=== PATIENT | male | born 1940 | race Caucasian/White ===

== ENCOUNTER 2016-10-11 11:47 | Observation (INO) | payer OTHER ==
[~2016-10-11] VITALS: Ht 167.6 cm; Wt 82.4 kg
[~2016-10-11 11:47] MED LIST changes: -CHOL100010 PO; -CYM/30 PO; -DOCU-94 PO; -FINA5TAB PO; -FLM4 PO; -FLUO10CA48 PO; -FLUO40CA8 PO; -GLC/500 PO; -HYDR-5688 PO; -NITR1CAP33 PO; -PROP10TA7 PO
[2016-10-11] MEDS ORDERED: FLUO40CA8 PO (11:54)
[2016-10-11] MEDS ORDERED: SODIUM CHLORIDE 0.9% 500ML 500 ML IV STA (12:13)
[2016-10-11 12:23] LABS: BASO % 0.4 %; BASO ABS # 0.04 K/uL (0-0.2); COMPLETE YES; EOS % 3.5 %; HEMATOCRIT 45.9 % (42-52); IG% 0.4 %; LYMPH % 36.3 %; LYMPH ABS # 3.51 K/uL (1.2-3.4); MEAN CELL VOLUME 90.4 fL (80-100); MEAN CORPUSCULAR HEMOGLOBIN 30.9 pg (25-34); MEAN CORPUSCULAR HGB CONC 34.2 g/dl (32-36); MEAN PLATELET VOLUME 10.8 fL (7.4-10.4); MONO % 6.9 %; NEUT % 52.5 %; PLATELET COUNT 282 K/uL (130-400); RED BLOOD COUNT 5.08 M/uL (4.7-6.1); WHITE BLOOD COUNT 9.67 K/uL (4.8-10.8)
[2016-10-11 12:31] LABS: PARTIAL THROMBOPLASTIN RATIO 0.9; PROTHROMBIN TIME (PATIENT) 10.3 SECONDS (9.0-12.0)
[2016-10-11 12:55] LABS: ALKALINE PHOSPHATASE 81 U/L (45-117); ALT/SGPT 45 U/L (12-78); AST/SGOT 17 U/L (15-37); BLOOD UREA NITROGEN 24 mg/dl (7-18); CALCIUM 9.2 mg/dl (8.5-10.1); CARBON DIOXIDE 23 mmol/L (21-32); CHLORIDE 105 mmol/L (98-107); GLUCOSE 119 mg/dl (70-99); POTASSIUM 3.8 mmol/L (3.5-5.1); SODIUM 139 mmol/L (136-145)
[2016-10-11 13:09] LABS: MAGNESIUM 2.1 mg/dl (1.8-2.4)
--- NOTE | 2016-10-11 13:26 | DIAGNOSTIC IMAGING REPORT ---
CHEST ONE VIEW PORTABLE CLINICAL HISTORY: weak eval for pnea COMPARISON STUDY: No previous studies for comparison. FINDINGS: The bones soft tissues and hemidiaphragms are normal. The cardiomediastinal silhouette is normal. The lungs are clear. The pulmonary vasculature is normal. IMPRESSION: Negative chest. Electronically signed by: Gold Darling M.D. 10/11/2016 1:25 PM Dictated Date/Time: 10/11/2016 1:12 PM
[2016-10-11] MEDS ORDERED: POLYETHYLENE (MIRALAX) 17 GM PACK PO PRN (14:00)
[2016-10-11] MEDS ORDERED: ACETAMINOPHEN 325 MG TAB PO PRN (14:00)
[2016-10-11] MEDS ORDERED: ALUMINUM/MAGNESIUM/SIMETH (MAALOX MAX) 30 ML UDC PO PRN (14:00)
[2016-10-11] MEDS ORDERED: MAGNESIUM HYDROXIDE SUSP 30 ML UDC PO PRN (14:00)
[2016-10-11] MEDS ORDERED: ONDANSETRON INJ 2 MG/ML 2 ML VIAL IV PRN (14:00)
[2016-10-11] MEDS ORDERED: IV FLUIDS COMPLETED PRN (14:30)
[2016-10-11 16:01] VITALS: BP 126/77; PULSE 66; TEMP 36.5; O2SAT 95; Ht 167.6 cm; Wt 82.4 kg
--- NOTE | 2016-10-11 17:21 | EMERGENCY ROOM VISIT NOTE ---
History Report prepared by Manan: Enmanuel Carter Under the Supervision of: Dr. Gaston Hernández M.D. First contact with patient: 12:05 Chief Complaint: SYNCOPE Stated Complaint: syncope Nursing Triage Summary: Pt presents via litter from out patient lab. pt had blood work taken at out pt lab and reports he then started to feel queasy. adalid solorzano was called. rn from [facility] team reports that pt then suffered a syncopal episode and was shaking. lasted aprox 10 seconds. upon arrival to ed room a10. pt alert and oriented x 4. diaphoretic. pt pale in color. pt reports "my whole body aches, i have had this all winter for a long time. bsg from [facility] team 118. pt reports he ate breakfast today. History of Present Illness The patient is a 75 year old male who presents to the Emergency Room with complaints of a resolved episode of syncope that occurred just prior to arrival. The patient was at the outpatient lab having routine blood work. The blood was finished being drawn when he started to feel "queasy." He then had a short episode where he lost consciousness. The patient was sitting in his chair and did not fall or hit his head. The patient was also shaking for about 10 seconds after losing consciousness. He does not have a history of seizures. He had breakfast this morning. He was not experiencing headache, chest pain, or shortness of breath prior to the syncope. The patient is currently feeling globally achy and restless. He has not had any recent vomiting, diarrhea, black or bloody stools, or urinary symptoms. The patient denies any recent tick bites and recently tested negative for Lyme disease. The patient has been experiencing intermittent body aches for years. He states currently he feels very lightheaded and weak. Source of History: patient Onset: just [employer] Position: other (global) Quality: other (syncope) Timing: resolved Associated Symptoms: No SOB, No chest pain, No diarrhea, No headache, No hematochezia, No melena, No urinary symptoms, No vomiting Review of Systems See HPI for pertinent positives & negatives. A total of 10 systems reviewed and were otherwise negative. Past Medical & Surgical Medical Problems: (1) HTN (hypertension) (2) Kidney stone (3) Syncope Family History No pertinent family history Social History Smoking Status: Never Smoker Marital Status: Housing Status: lives with family Current/Historical Medications Scheduled Amiloride/Hctz (Amiloride/Hydrochlorothia 5-50 mg), 1 TAB PO QAM Atenolol (Atenolol), 12.5 MG PO Q2D Citalopram (Citalopram Hydrobromide), 20 MG PO QAM Fluoxetine (Prozac), 40 MG PO DAILY Lisinopril (Zestril), 10 MG PO QAM Multiple Vitamin (Multivitamin), 1 TAB PO AM Potassium Citrate (Potassium Citrate), 10 MEQ PO QAM Allergies Coded Allergies: No Known Allergies (Unverified , 10/11/16) Physical Exam Vital Signs Date Time Temp Pulse Resp B/P Pulse Ox O2 Delivery O2 Flow Rate FiO2 10/11/16 13:45 61 18 129/75 96 Room Air 10/11/16 13:06 54 18 121/67 94 Room Air 10/11/16 12:17 57 20 116/66 96 Room Air 10/11/16 12:12 59 104/70 60 124/107 113/72 10/11/16 12:08 56 10/11/16 12:07 58 18 110/71 96 Room Air 10/11/16 11:45 94 Room Air 10/11/16 11:45 36.7 58 18 134/76 95 Room Air Physical Exam Constitutional: Vital signs reviewed. Eyes: Pupils are equal round reactive to light. Conjunctiva are noninjected. ENT: Pharynx is clear without erythema or exudate. Mucous membranes are dry. Neck supple without meningeal signs. Respiratory: Clear to auscultation bilaterally. Breath sounds are equal bilaterally. Cardiovascular: Regular rate and rhythm. No rubs or gallops. GI: Soft, nondistended and nontender. Bowel sounds are present. Musculoskeletal: No peripheral edema. No lower extremity tenderness. Integumentary: No cyanosis. Neurological: The patient is awake and alert. No focal deficits. Psychiatric: Normal affect. Medical Decision & Procedures ER Provider Diagnostic Interpretation: X-ray results as stated below per interpretation by me and the radiologist: CHEST ONE VIEW PORTABLE CLINICAL HISTORY: weak eval for pnea COMPARISON STUDY: No previous studies for comparison. FINDINGS: The bones soft tissues and hemidiaphragms are normal. The cardiomediastinal silhouette is normal. The lungs are clear. The pulmonary vasculature is normal. IMPRESSION: Negative chest. Electronically signed by: Gold Darling M.D. 10/11/2016 1:25 PM Dictated Date/Time: 10/11/2016 1:12 PM Laboratory Results 10/11/16 12:00 Red Blood Count 5.08, Mean Corpuscular Volume 90.4, Mean Corpuscular Hemoglobin 30.9, Mean Corpuscular Hemoglobin Concent 34.2, Mean Platelet Volume 10.8, Neutrophils (%) (Auto) 52.5, Lymphocytes (%) (Auto) 36.3, Monocytes (%) (Auto) 6.9, Eosinophils (%) (Auto) 3.5, Basophils (%) (Auto) 0.4, Neutrophils # (Auto) 5.07, Lymphocytes # (Auto) 3.51, Monocytes # (Auto) 0.67, Eosinophils # (Auto) 0.34, Basophils # (Auto) 0.04 10/11/16 12:00 Test 10/11/16 12:00 White Blood Count 9.67 K/uL (4.8-10.8) Red Blood Count 5.08 M/uL (4.7-6.1) Hemoglobin 15.7 g/dL (14.0-18.0) Hematocrit 45.9 % (42-52) Mean Corpuscular Volume 90.4 fL (80-100) Mean Corpuscular Hemoglobin 30.9 pg (25-34) Mean Corpuscular Hemoglobin Concent 34.2 g/dl (32-36) Platelet Count 282 K/uL (130-400) Mean Platelet Volume 10.8 fL (7.4-10.4) Neutrophils (%) (Auto) 52.5 % Lymphocytes (%) (Auto) 36.3 % Monocytes (%) (Auto) 6.9 % Eosinophils (%) (Auto) 3.5 % Basophils (%) (Auto) 0.4 % Neutrophils # (Auto) 5.07 K/uL (1.4-6.5) Lymphocytes # (Auto) 3.51 K/uL (1.2-3.4) Monocytes # (Auto) 0.67 K/uL (0.11-0.59) Eosinophils # (Auto) 0.34 K/uL (0-0.5) Basophils # (Auto) 0.04 K/uL (0-0.2) RDW Standard Deviation 43.3 fL (36.4-46.3) RDW Coefficient of Variation 13.2 % (11.5-14.5) Immature Granulocyte % (Auto) 0.4 % Immature Granulocyte # (Auto) 0.04 K/uL (0.00-0.02) Prothrombin Time 10.3 SECONDS (9.0-12.0) Prothromb Time International Ratio 1.0 (0.9-1.1) Activated Partial Thromboplast Time 23.2 SECONDS (21.0-31.0) Partial Thromboplastin Ratio 0.9 Anion Gap 11.0 mmol/L (3-11) Est Creatinine Clear Calc Drug Dose 55.3 ml/min Estimated GFR () 69.1 Estimated GFR (Non- 59.6 BUN/Creatinine Ratio 20.0 (10-20) Calcium Level 9.2 mg/dl (8.5-10.1) Magnesium Level 2.1 mg/dl (1.8-2.4) Total Bilirubin 0.4 mg/dl (0.2-1) Direct Bilirubin 0.1 mg/dl (0-0.2) Aspartate Amino Transf (AST/SGOT) 17 U/L (15-37) Alanine Aminotransferase (ALT/SGPT) 45 U/L (12-78) Alkaline Phosphatase 81 U/L (45-117) Troponin I < 0.015 ng/ml (0-0.045) Total Protein 7.7 gm/dl (6.4-8.2) Albumin 3.9 gm/dl (3.4-5.0) Thyroid Stimulating Hormone (TSH) 3.530 uIu/ml (0.300-4.500) Laboratory results as reviewed by me. Medications Administered Medications (Trade) Dose Ordered Sig/Ashley Route Start Time Stop Time Status Last Admin Dose Admin Sodium Chloride (Nss 500ml) 500 ml @ 999 mls/hr Q31M STAT IV 10/11/16 12:13 10/11/16 12:43 DC 10/11/16 12:18 999 MLS/HR ECG Indication: syncope Rate (beats per minute): 54 Rhythm: sinus bradycardia Findings: no acute ischemic change, no ectopy ED Course 1208: The patient was evaluated in room A10. A complete history and physical exam was performed. 1213: NSS 500 ml @ 999 mls/hr. 1310: Reassessed the patient. He is feeling better. 1333: Discussed the case with Dr. Aviles, [facility]. The patient will be evaluated. Medical Decision This is a 75-year-old male who presents with a syncopal episode. Differential diagnosis includes metabolic derangement, hypoglycemia, vasovagal syncope, dehydration, orthostatic hypotension, cardiac. I did perform a limited focused review of portions of the patient's old chart on the electronic medical record. The patient has had no recent pertinent visits to this hospital. I was asked to see this patient by the nurse as he was still symptomatic after a syncopal episode. I did evaluate the patient as noted above. He is complaining of generalized weakness and feeling like his chronic pass out again. He was unable to tolerate orthostatic vital signs. He IV access was established. The patient was placed on a continuous cardiac surgeon. I did treat him with normal saline IV. I did order and personally review the patient' s 12-lead EKG and chest x-ray as described above. I did order and review the patient's blood work as noted in the electronic medical record. I did discuss the test results with the patient. On reassessment he is feeling better. I did recommend hospitalization for further workup of his symptoms. I did discuss case with the hospitalist and family service caseworker. Consults Time Called: 1330 Consulting Physician: Dr. Aviles, [facility] Returned Call: [phone] The patient will be evaluated. Impression Primary Impression: Syncope Scribe Attestation The scribe's documentation has been prepared under my direct and personally reviewed by me in its entirety. I confirm that the note above accurately reflects all work, treatment, procedures, and medical decision making performed by me. Departure Information Dispostion Being Evaluated By Hospitalist Referrals Michael Atwood M.D. (PCP) Patient Instructions [facility] Problem Qualifiers Primary Impression: Syncope Syncope type: unspecified Qualified Codes: R55 - Syncope and collapse
--- NOTE | 2016-10-11 18:17 | History and Physical ---
History & Physical Date & Time of Service: October 11, 2016 at 18:12 Chief Complaint: Syncope Primary Care Physician: Michael Atwood M.D. Past Medical/Surgical History Medical Problems: (1) HTN (hypertension) Status: Chronic (2) Kidney stone Status: Chronic Family History No pertinent family history Social History Smoking Status: Never Smoker Marital Status: Multi-Drug Resistant Organisms History of MDRO: No Allergies Coded Allergies: No Known Allergies (Unverified , 10/11/16) Home Medications Scheduled Amiloride/Hctz (Amiloride/Hydrochlorothia 5-50 mg), 1 TAB PO QAM Atenolol (Atenolol), 12.5 MG PO Q2D Citalopram (Citalopram Hydrobromide), 20 MG PO QAM Fluoxetine (Prozac), 40 MG PO DAILY Lisinopril (Zestril), 10 MG PO QAM Multiple Vitamin (Multivitamin), 1 TAB PO AM Potassium Citrate (Potassium Citrate), 10 MEQ PO QAM Physical Exam Vital Signs Date Time Temp Pulse Resp B/P Pulse Ox O2 Delivery O2 Flow Rate FiO2 10/11/16 16:01 36.5 66 16 126/77 95 Room Air 10/11/16 14:38 60 18 123/78 95 Room Air 10/11/16 14:12 59 18 127/76 95 Room Air 10/11/16 14:09 59 10/11/16 13:45 61 18 129/75 96 Room Air 10/11/16 13:06 54 18 121/67 94 Room Air 10/11/16 12:17 57 20 116/66 96 Room Air 10/11/16 12:12 59 104/70 60 124/107 113/72 10/11/16 12:08 56 10/11/16 12:07 58 18 110/71 96 Room Air 10/11/16 11:45 94 Room Air 10/11/16 11:45 36.7 58 18 134/76 95 Room Air Diagnostics Laboratory Results Results Past 24 Hours Test 10/11/16 12:00 Range/Units White Blood Count 9.67 4.8-10.8 K/uL Red Blood Count 5.08 4.7-6.1 M/uL Hemoglobin 15.7 14.0-18.0 g/dL Hematocrit 45.9 42-52 % Mean Corpuscular Volume 90.4 80-100 fL Mean Corpuscular Hemoglobin 30.9 25-34 pg Mean Corpuscular Hemoglobin Concent 34.2 32-36 g/dl Platelet Count 282 130-400 K/uL Mean Platelet Volume 10.8 7.4-10.4 fL Neutrophils (%) (Auto) 52.5 % Lymphocytes (%) (Auto) 36.3 % Monocytes (%) (Auto) 6.9 % Eosinophils (%) (Auto) 3.5 % Basophils (%) (Auto) 0.4 % Neutrophils # (Auto) 5.07 1.4-6.5 K/uL Lymphocytes # (Auto) 3.51 1.2-3.4 K/uL Monocytes # (Auto) 0.67 0.11-0.59 K/uL Eosinophils # (Auto) 0.34 0-0.5 K/uL Basophils # (Auto) 0.04 0-0.2 K/uL RDW Standard Deviation 43.3 36.4-46.3 fL RDW Coefficient of Variation 13.2 11.5-14.5 % Immature Granulocyte % (Auto) 0.4 % Immature Granulocyte # (Auto) 0.04 0.00-0.02 K/uL Prothrombin Time 10.3 9.0-12.0 SECONDS Prothromb Time International Ratio 1.0 0.9-1.1 Activated Partial Thromboplast Time 23.2 21.0-31.0 SECONDS Partial Thromboplastin Ratio 0.9 Sodium Level 139 136-145 mmol/L Potassium Level 3.8 3.5-5.1 mmol/L Chloride Level 105 98-107 mmol/L Carbon Dioxide Level 23 21-32 mmol/L Anion Gap 11.0 3-11 mmol/L Blood Urea Nitrogen 24 7-18 mg/dl Creatinine 1.20 0.60-1.40 mg/dl Est Creatinine Clear Calc Drug Dose 55.3 ml/min Estimated GFR () 69.1 Estimated GFR (Non- 59.6 BUN/Creatinine Ratio 20.0 10-20 Random Glucose 119 70-99 mg/dl Calcium Level 9.2 8.5-10.1 mg/dl Magnesium Level 2.1 1.8-2.4 mg/dl Total Bilirubin 0.4 0.2-1 mg/dl Direct Bilirubin 0.1 0-0.2 mg/dl Aspartate Amino Transf (AST/SGOT) 17 15-37 U/L Alanine Aminotransferase (ALT/SGPT) 45 12-78 U/L Alkaline Phosphatase 81 45-117 U/L Troponin I < 0.015 0-0.045 ng/ml Total Protein 7.7 6.4-8.2 gm/dl Albumin 3.9 3.4-5.0 gm/dl Thyroid Stimulating Hormone (TSH) 3.530 0.300-4.500 uIu/ml Impression Assessment and Plan obs #[id number] Advanced Directives Existing Living Will: No Existing Power of Stock Mixer: No VTE Prophylaxis VTE Risk Assessment Done? Y/N: Yes Risk Level: Moderate
--- NOTE | 2016-10-11 18:56 | HISTORY & PHYSICAL EXAMINATION ---
DATE OF ADMISSION: 10/11/2016 CHIEF COMPLAINT: Syncope. HISTORY OF PRESENT ILLNESS: The patient is a very pleasant 75-year-old male, who was here to get blood work. He notes he felt "queasy" before the needle stick and then afterwards he started to feel like he was going to go out, got pale and diaphoretic and then had a syncopal event. He was code purple in the lab and then brought to the ER for further evaluation because of his age and cardiac risks. Although he felt fine now, we were asked to see him for further evaluation in regards to the syncope. He denies any chest pain or shortness of breath. He notes that he kind of felt it coming on and now he feels fine. REVIEW OF SYSTEMS: Otherwise entirely negative except for as above. PAST MEDICAL HISTORY: Hypertension, BPH and nephrolithiasis. HOME MEDICATIONS: Amiloride/hydrochlorothiazide 5/50 daily, atenolol 12.5 listed as every other day, Celexa 20 mg daily, Prozac 40 mg daily, lisinopril 10 mg daily, multivitamin daily and potassium chloride 10 mEq daily. PAST SURGICAL HISTORY: Includes prostatectomy and lithotripsy. FAMILY HISTORY: There is no known family history of anything of significance. SOCIAL HISTORY: He is a former smoker. He does not smoke currently. He is . ALLERGIES: No known drug allergies. PHYSICAL EXAMINATION: VITAL SIGNS: His initial vitals showed a temp of 36.7, pulse 58, respiratory rate 18, blood pressure 134/76 and 95% on room air. GENERAL: He is awake, alert, oriented x3, pleasant, in no acute distress. HEENT: Normocephalic, atraumatic. Mucous membranes are moist. CARDIOVASCULAR: Regular without rubs, murmurs or gallops. LUNGS: Clear to auscultation bilaterally. No rales, rhonchi or wheezes, with good effort. ABDOMEN: Soft, nondistended, nontender, no masses or organomegaly. EXTREMITIES: Without cyanosis, clubbing or edema. No calf tenderness. SKIN: Shows no rashes, no pallor or icterus. NEUROLOGIC: Shows cranial nerves II-XII to be grossly intact. Gross motor and sensory are intact. MUSCULOSKELETAL: Yields no gross lesions. SKIN: Shows no rashes. No pallor or icterus. NEUROLOGIC: Shows cranial nerves II-XII to be grossly intact. Gross motor and sensory are intact. MENTAL STATUS: Shows good recent and remote recall. Normal mood and affect. Good judgment and insight. LABORATORIES AND DIAGNOSTICS: CBC shows a white count of 9.67 with 52.5% neutrophils, hemoglobin 15.7, platelets 282. Complete metabolic panel with sodium 139, potassium 3.8, chloride 105, CO2 23, BUN 24, creatinine 1.2, calcium 9.2, glucose 119, mag 2.1, total bili 0.4 with a direct of 0.1, AST 17, ALT 45, alkaline phosphatase 81, troponin of less than 0.015. Total protein 7.7. TSH 3.53, albumin 3.9. PT of 10.3, PTT of 23.2. Chest x-ray; shows no acute disease. EKG; slight sinus bradycardia, a little bit difficult to interpret tracing with a slight wandering baseline, another tracing on the same day is more clear, sinus bradycardia without ischemic changes. ASSESSMENT AND PLAN: 1. Syncope; his history fits extremely well with a vasovagal event. He was feeling nauseated, then he got pale and diaphoretic, he went out, then he woke up feeling like himself with no notable sequelae. Given this happened right around the time of a blood draw, this makes it even more likely. However, given his age, hypertension and risk, we certainly need to evaluate for arrhythmia as well as other pathology. We will put him on telemetry for continuous cardiac monitoring. Check orthostatics b.i.d. to ensure he is not being over treated with any antihypertensives and check an echocardiogram; assuming these are all negative, then certainly both by the fact this looks very vagal and by ruling out other pathology would be very safe to let him go home. 2. Hypertension. Continue his home meds, check the orthostatic as above noted. 3. Deep venous thrombosis prophylaxis, Lovenox. 4. Polypharmacy; he is listed as being on both Celexa and Prozac; we will try to clarify which he is actually on.
[2016-10-11 19:23] LABS: URINE APPEARANCE CLEAR (CLEAR); URINE BILIRUBIN NEG (NEG); URINE COLOR YELLOW; URINE NITRITE NEG (NEG); URINE PH 7.5 (4.5-7.5); URINE SPECIFIC GRAVITY 1.012 (1.000-1.030); UROBILINOGEN NEG (NEG)
[2016-10-11 19:39] VITALS: BP 123/72; PULSE 76; TEMP 36.6; O2SAT 100
[2016-10-11 19:44] LABS: MANUAL MICROSCOPIC REQUIRED? NO; REVIEW REQ? NO
[2016-10-11 19:56] VITALS: BP 142/78; PULSE 60; TEMP 36.8; O2SAT 93
[2016-10-11 20:00] VITALS: O2SAT 93
[2016-10-11] MEDS ORDERED: ENOXAPARIN 40 MG/0.4 ML SYR SC SCH (21:00)
[2016-10-12] VITALS: BP 143/75; PULSE 60; TEMP 36.5; O2SAT 94
[2016-10-12 04:00] VITALS: BP 137/68; PULSE 58; TEMP 36.7; O2SAT 95
[2016-10-12 08:14] VITALS: BP 150/82; PULSE 74; TEMP 36.9; O2SAT 97
[2016-10-12] MEDS ORDERED: POTASSIUM CITRATE 10 MEQ TAB PO SCH (09:00)
[2016-10-12] MEDS ORDERED: MULTIVITAMIN TAB PO SCH (09:00)
[2016-10-12] MEDS ORDERED: AMILORIDE/HCTZ 5-50 MG TAB PO SCH (09:00)
[2016-10-12] MEDS ORDERED: CITALOPRAM 20 MG TAB PO SCH (09:00)
[2016-10-12] MEDS ORDERED: FLUOXETINE HCL 20 MG CAP PO SCH (09:00)
[2016-10-12] MEDS ORDERED: LISINOPRIL 10 MG TAB PO SCH (09:00)
[2016-10-12 10:17] VITALS: BP_SYST 139; BP_SYST 143; BP_SYST 149; BP_DIAS 72; BP_DIAS 74; PULSE 71; PULSE 75; PULSE 78; TEMP 36.8; O2SAT 95
--- NOTE | 2016-10-12 10:34 | Discharge Instructions ---
Discharge Instructions Date of Service October 12, 2016. Admission Reason for Admission: Syncope Discharge Discharge Diagnosis / Problem: Syncope - Vasovagal Discharge Goals Goal(s): Improve disease control Activity Recommendations Activity Limitations: resume your previous activity . Instructions / Follow-Up Instructions / Follow-Up Follow up with Family physician within one week Current Hospital Diet Patient's current hospital diet: Regular Diet Discharge Diet Recommended Diet: AHA Diet (Heart Healthy) Pending Studies Studies pending at discharge: no Medical Emergencies . Who to Call and When: Medical Emergencies: If at any time you feel your situation is an emergency, please call 911 immediately. . Non-Emergent Contact Non-Emergency issues call your: Primary Care Provider . . "Provider Documentation" section prepared by Judi Traore. . VTE Core Measure Inpt VTE Proph given/why not?: Enoxaparin (Lovenox)SQ
[2016-10-12 10:55] VITALS: BP 149/74; PULSE 75; TEMP 36.8; O2SAT 95
[2016-10-12 11:45] VITALS: BP 129/59; PULSE 84; TEMP 36.8; O2SAT 96
--- NOTE | 2016-10-12 12:36 | Discharge Summary ---
Discharge Summary Date of Service October 12, 2016. Discharge Summary Admission Date: October 11, 2016 at 13:59 Discharge Date: October 12, 2016 Discharge Disposition: Home Principal Diagnosis: Vasovagal Syncope Medication Reconciliation Continued Medications: Amiloride/Hctz (Amiloride/Hydrochlorothia 5-50 mg) 1 Ea Tab 1 TAB PO QAM Atenolol (Atenolol) 25 Mg Tab 12.5 MG PO Q2D Fluoxetine (Prozac) 40 Mg Cap 40 MG PO DAILY, CAP Lisinopril (Zestril) 10 Mg Tab 10 MG PO QAM, TAB Multiple Vitamin (Multivitamin) 1 Tab Tab 1 TAB PO AM, TAB Potassium Citrate (Potassium Citrate) 10 Meq Tab 10 MEQ PO QAM Discharge Exam Last Resulted CBC 10/11/16 12:00 Red Blood Count 5.08, Mean Corpuscular Volume 90.4, Mean Corpuscular Hemoglobin 30.9, Mean Corpuscular Hemoglobin Concent 34.2, Mean Platelet Volume 10.8, Neutrophils (%) (Auto) 52.5, Lymphocytes (%) (Auto) 36.3, Monocytes (%) (Auto) 6.9, Eosinophils (%) (Auto) 3.5, Basophils (%) (Auto) 0.4, Neutrophils # (Auto) 5.07, Lymphocytes # (Auto) 3.51, Monocytes # (Auto) 0.67, Eosinophils # (Auto) 0.34, Basophils # (Auto) 0.04 Last Resulted BMP 10/11/16 12:00 Last 24 Hours Test 10/11/16 19:05 10/11/16 19:52 10/12/16 02:04 10/12/16 07:56 Urine Color YELLOW Urine Appearance CLEAR Urine pH 7.5 Urine Specific [place] 1.012 Urine Protein NEG Urine Glucose (UA) NEG Urine Ketones NEG Urine Occult Blood NEG Urine Nitrite NEG Urine Bilirubin NEG Urine Urobilinogen NEG Urine Leukocyte Esterase NEG Troponin I < 0.015 ng/ml < 0.015 ng/ml < 0.015 ng/ml Review of Systems: Constitutional: No fever Respiratory: No shortness of breath Cardiovascular: No chest pain, No edema, No orthopnea, No palpitations Abdomen: No pain Physical Exam: General Appearance: no apparent distress Respiratory/Chest: lungs clear, no respiratory distress Cardiovascular: regular rate, rhythm Abdomen / GI: normal bowel sounds, non tender, soft Neurologic/Psychiatric: alert, oriented x 3 Skin: warm/dry Hospital Course 75 y/o M who was getting his blood test done, felt "queasy" before the needle stick and then afterwards he started to feel like he was going to go out, got pale and diaphoretic and then had a syncopal event. He was code purple in the lab and then brought to the ER for further evaluation because of his age and cardiac risks. He felt fine right after the event. Initial work up in ED was negative. Kept on PCU. Orthostatics and heart rhythm were normal. Advised to check blood pressure at home and take readings to PCP. f/u with pcp in one week Total Time Spent: Greater than 30 minutes (40) This includes examination of the patient, discharge planning, medication reconciliation, and communication with other providers. Discharge Instructions Please refer to the electronic Patient Visit Report (Discharge Instructions) for additional information. Additional Copies To Michael Atwood M.D.
--- NOTE | 2016-10-12 15:04 | ECHOCARDIOGRAM REPORT ---
*NOTICE TO RECEIVING CONSTITUTION PARTY AGENCY This information is strictly Confidential and protected under [place] law. [place] law prohibits you from making any further disclosure of this information unless further disclosure is expressly permitted by the written consent of the person to whom it pertains or is authorized by law. A general authorization for the release of medical or other information is not sufficient for this purpose. Hospital accepts no responsibility if the information is made available to any other person, INCLUDING THE PATIENT. Interpretation Summary * Name: MARC JEFFRIES Study Date: 10/12/2016 06:31 AM BP: 137/68 mmHg * Patient Location: [facility]– [place][note 2] HR: 58 * : 1940 (M/d/yyyy) Gender: Male Height: 66 in * Age: 75 yrs Ethnicity: CA Weight: 182 lb * Ordering Physician: Brijesh Aviles * Performed By: Leatha Lopez * * Reason For Study: SYNCOPE * BSA: 1.9 m2 * -- Conclusions -- * 1. Normal left ventricular size with low-normal systolic function. EF 50-55%. No regional wall motion abnormalities. Mild concentric left ventricular hypertrophy. Type 1 diastolic dysfunction. * 2. No significant valvular abnormalities. * 3. No prior study available for comparison. Procedure Details * A complete two-dimensional transthoracic echocardiogram was performed (2D, M-mode, Doppler and color flow Doppler). Left Ventricle * Normal left ventricular size with low-normal systolic function. EF 50-55%. No regional wall motion abnormalities. Mild concentric left ventricular hypertrophy. Type 1 diastolic dysfunction. * Ejection Fraction = 50-55%. Right Ventricle * The right ventricle is normal in size and function. * The right ventricular systolic function is normal as assessed by tricuspid annular plane systolic excursion (TAPSE) (normal >1.5 cm). Atria * The left atrial size is normal. * Right atrial size is normal. * There is no evidence of atrial septal defect, but resolution does not allow assessment for a patent foramen ovale. Mitral Valve * The mitral valve is grossly normal. * There is no mitral valve stenosis. * There is trace mitral regurgitation. Tricuspid Valve * The tricuspid valve is not well visualized, but is grossly normal. * There is no tricuspid stenosis. * Significant tricuspid regurgitation is absent. Aortic Valve * The aortic valve is normal in structure and function. * No hemodynamically significant valvular aortic stenosis. * Trace aortic regurgitation. Pulmonic Valve * The pulmonary valve is inadequately visualized, but the Doppler data is adequate for interpretation. * There is no pulmonic valvular stenosis. * There is no significant pulmonary regurgitation. Great Vessels * The aortic root is normal size. Pericardium/Pleural * There is no pericardial effusion. Great Vessels * Normal inferior vena cava size and collapsability with sniff indicates a normal right atrial pressure of 3 mmHg Left Ventricular Diastolic Function * Grade I diastolic dysfunction, (abnormal relaxation pattern). MMode 2D Measurements and Calculations IVSd 1.2 cm IVSs 1.8 cm LVIDd 4.3 cm LVIDs 3.1 cm LVPWd 1.2 cm LVPWs 1.7 cm IVS/LVPW 0.99 FS 27.3 % EDV(Teich) 83.8 ml ESV(Teich) 39.1 ml EF(Teich) 53.4 % EDV(cubed) 80.3 ml ESV(cubed) 30.9 ml EF(cubed) 61.5 % % IVS thick 52.3 % % LVPW thick 41.2 % LV mass(C)d 181.4 grams LV mass(C)dI 94.4 grams/m\S\2 LV mass(C)s 214.5 grams LV mass(C)sI 111.6 grams/m\S\2 CO(Teich) 2.6 l/min CI(Teich) 1.3 l/min/m\S\2 SV(Teich) 44.7 ml SI(Teich) 23.3 ml/m\S\2 CO(cubed) 2.9 l/min CI(cubed) 1.5 l/min/m\S\2 SV(cubed) 49.4 ml SI(cubed) 25.7 ml/m\S\2 Ao root diam 3.4 cm Ao root area 9.2 cm\S\2 ACS 1.4 cm LA dimension 3.4 cm asc Aorta Diam 3.3 cm LA/Ao 10 LVOT diam 2.1 cm LVOT area 3.4 cm\S\2 LVAd ap4 27.1 cm\S\2 LVLd ap4 7.2 cm EDV(MOD-sp4) 86.5 ml LVAs ap4 17.4 cm\S\2 LVLs ap4 6.0 cm ESV(MOD-sp4) 43.2 ml EF(MOD-sp4) 50.1 % LVAd ap2 24.2 cm\S\2 LVLd ap2 7.0 cm EDV(MOD-sp2) 69.3 ml EDV(sp2-el) 87.2 ml LVAs ap2 15.6 cm\S\2 LVLs ap2 6.0 cm ESV(MOD-sp2) 33.7 ml ESV(sp2-el) 33.6 ml EF(MOD-sp2) 51.4 % EF(sp2-el) 61.5 % CO(MOD-sp4) 2.5 l/min CI(MOD-sp4) 1.3 l/min/m\S\2 SV(MOD-sp4) 43.3 ml SI(MOD-sp4) 22.5 ml/m\S\2 CO(MOD-sp2) 2.1 l/min CI(MOD-sp2) 1.1 l/min/m\S\2 SV(MOD-sp2) 35.6 ml SI(MOD-sp2) 18.5 ml/m\S\2 CO(sp2-el) 3.1 l/min CI(sp2-el) 1.6 l/min/m\S\2 SV(sp2-el) 53.7 ml SI(sp2-el) 27.9 ml/m\S\2 Doppler Measurements and Calculations MV E max emily 47.1 cm/sec MV A max emily 92.2 cm/sec MV E/A 0.51 MV dec time 0.36 sec Ao V2 max 123.8 cm/sec Ao max PG 6.1 mmHg Ao max PG (full) 3.4 mmHg OSCAR(V,A) 2.3 cm\S\2 OSCAR(V,D) 2.3 cm\S\2 AI max emily 407.8 cm/sec AI max PG 66.5 mmHg AI dec slope 171.7 cm/sec\S\2 AI P1/2t 695.5 msec LV V1 max PG 2.7 mmHg LV V1 max 82.9 cm/sec TV E max emily 46.4 cm/sec PA V2 max 62.1 cm/sec PA max PG 1.5 mmHg RAP systole 3.0 mmHg
[2017-04-25] MEDS ORDERED: FLM4 PO (14:25)
[2017-04-25] MEDS ORDERED: FINA5TAB PO (14:25)
[2017-04-25] MEDS ORDERED: CHOL100010 PO (14:25)
[2017-04-25] MEDS ORDERED: NITR1CAP33 PO (14:25)
[2017-04-25] MEDS ORDERED: PROP10TA7 PO (14:25)
[2017-04-25] MEDS ORDERED: CYM/30 PO (14:25)
[2017-04-25] MEDS ORDERED: FLUO10CA48 PO (15:08)
== END 2016-10-12 13:20 | disposition home or self-care (01) ==
LOC: ENRESERVDT → ENRESERVTM → EDBD 11:47 → C.EDA 11:48 → C.2T 13:59
PROVIDERS: ADMIT Family Medicine; ATTEND Family Medicine
DX: R55 Syncope and collapse (principal); I10 Essential (primary) hypertension; Z87.442 Personal history of urinary calculi; Z87.891 Personal history of nicotine dependence; I82.409 Acute embolism and thrombosis of unspecified deep veins of unspecified lower extremity; N20.0 Calculus of kidney

== ENCOUNTER → 2016-10-11 | Outpatient (CLI) | payer OTHER ==
[~2016-10-11] MED LIST: AMLH/550 PO; CHOL100010 PO; CLX/20 PO; CYM/30 PO; DOCU-94 PO; FINA5TAB PO; FLM4 PO; FLUO10CA48 PO; FLUO40CA8 PO; GLC/500 PO; HYDR-5688 PO; LISI-461 PO; MULTTAB58 PO; NITR1CAP33 PO; PROP10TA7 PO; TNR25 PO; URC10 PO
--- NOTE | 2016-11-16 09:31 | CODING QUERY MEDICAL NECESSITY ---
SUPPORTING DIAGNOSIS NEEDED Dr. Álvarez, A supporting diagnosis is required for the test/procedure performed on this patient in order for us to be reimbursed by the patient's insurance. Please provide a supporting diagnosis for the following test/procedure listed below next to the test name along with your signature. *If there is no additional diagnosis for this patient that would support the following test/procedure please document that below next to the test/procedure. Test(s)/Procedure(s) that require a supporting diagnosis: * [id number] PSA DIAGNOSIS: DATE OF SERVICE: 10/11/16 Provider Signature: Date: Thank you Jesús Ann [facility] Information Management Once completed, please kindly fax back to [phone] For questions please call [phone]
== END | disposition home or self-care (01) ==
LOC: C.RAD 11:09
PROVIDERS: ATTEND Urology
DX: N20.0 Calculus of kidney (principal); N40.1 Benign prostatic hyperplasia with lower urinary tract symptoms

== ENCOUNTER → 2017-03-23 | Outpatient (CLI) | payer OTHER ==
[~2017-03-23] MED LIST changes: -CLX/20 PO; +FLUO40CA8 PO
--- NOTE | 2017-03-23 10:38 | DIAGNOSTIC IMAGING REPORT ---
KUB CLINICAL HISTORY: Nephrolithiasis. COMPARISON STUDY: KUB December 28, 2015. FINDINGS: Pelvic calcifications are unchanged and likely reflect phleboliths. No ureteral calculi are identified. A 9 mm calculus within the right kidney has slightly increased in size since exam of December 28, 2015. There is a 2 mm left renal calculus. IMPRESSION: 1. Bilateral nephrolithiasis. Mild interval increase in size of a 9 mm right renal calculus. 2. No ureteral calculi identified. Electronically signed by: Jose Enrique Banks M.D. 03/23/2017 10:37 AM Dictated Date/Time: 03/23/2017 10:35 AM
== END | disposition home or self-care (01) ==
LOC: C.RAD 10:06
PROVIDERS: ATTEND Urology
DX: N40.1 Benign prostatic hyperplasia with lower urinary tract symptoms (principal)

== ENCOUNTER → 2017-03-28 | Outpatient (CLI) | payer OTHER | END | disposition home or self-care (01) | LOC: C.LABSPEC 10:46 | PROVIDERS: ATTEND Urology | DX: N40.1 Benign prostatic hyperplasia with lower urinary tract symptoms (principal) ==

== ENCOUNTER 2017-05-10 05:06 | Observation (INO) | payer OTHER ==
--- NOTE | 2017-04-25 14:59 | PAT Medication Instructions ---
Service Date Apr 25, 2017. Current Home Medication List Amiloride/Hctz (Amiloride/Hydrochlorothia 5-50 mg), 1 TAB PO QAM Cholecalciferol (Vitamin D), 1 TAB PO QAM Duloxetine HCl (Cymbalta), 1 CAP PO QAM Finasteride (Proscar), 5 MG PO QAM Lisinopril (Zestril), 10 MG PO QAM Nitrofurantoin Macrocrystals (Macrodantin), 50 MG PO BID Potassium Citrate (Potassium Citrate), 10 MEQ PO QAM Propranolol (Inderal), 10 MG PO BID Tamsulosin HCl (Tamsulosin HCl), 1 TAB PO QAM Medication Instructions For Your Scheduled Surgery - Hold the following medications the morning of surgery: Amiloride/Hctz (Amiloride/Hydrochlorothia 5-50 mg), 1 TAB PO QAM Cholecalciferol (Vitamin D), 1 TAB PO QAM Finasteride (Proscar), 5 MG PO QAM Lisinopril (Zestril), 10 MG PO QAM Potassium Citrate (Potassium Citrate), 10 MEQ PO QAM Tamsulosin HCl (Tamsulosin HCl), 1 TAB PO QAM - Take the following medications the morning of surgery with a sip of water: Duloxetine HCl (Cymbalta), 1 CAP PO QAM Propranolol (Inderal), 10 MG PO BID Nitrofurantoin Macrocrystals (Macrodantin), 50 MG PO BID - Take the following medications as scheduled the night before surgery: Propranolol (Inderal), 10 MG PO BID Nitrofurantoin Macrocrystals (Macrodantin), 50 MG PO BID If you have any questions please call us at [phone] or [phone] or [phone]
[2017-04-25 15:34] LABS: BASO % 0.4 %; BASO ABS # 0.04 K/uL (0-0.2); COMPLETE YES; EOS % 6.3 %; HEMATOCRIT 45.9 % (42-52); IG% 0.4 %; LYMPH % 26.3 %; LYMPH ABS # 2.49 K/uL (1.2-3.4); MEAN CORPUSCULAR HEMOGLOBIN 31.5 pg (25-34); MEAN CORPUSCULAR HGB CONC 34.2 g/dl (32-36); MEAN PLATELET VOLUME 10.6 fL (7.4-10.4); MONO % 8.6 %; PLATELET COUNT 219 K/uL (130-400); RED BLOOD COUNT 4.99 M/uL (4.7-6.1); WHITE BLOOD COUNT 9.48 K/uL (4.8-10.8)
[2017-04-25 15:43] LABS: BUN/CREATININE RATIO 23.5 (10-20); CALCIUM 9.3 mg/dl (8.5-10.1); CREATININE 1.17 mg/dl (0.60-1.40); POTASSIUM 4.4 mmol/L (3.5-5.1)
[2017-04-25 15:48] LABS: URINE APPEARANCE CLEAR (CLEAR); URINE BILIRUBIN NEG (NEG); URINE COLOR YELLOW; URINE EPITHELIAL CELL AUTO 0-5 /lpf (0-5); URINE NITRITE NEG (NEG); URINE SPECIFIC GRAVITY 1.018 (1.000-1.030); UROBILINOGEN NEG (NEG)
[2017-04-25 15:56] LABS: MANUAL MICROSCOPIC REQUIRED? NO; REVIEW REQ? NO
[~2017-05-10] VITALS: Ht 167.6 cm; Wt 84.6 kg
[2017-05-10] VITALS (9 sets, daily range): BP systolic 113–140; BP diastolic 65–85; PULSE 68–99; TEMP 36.5–36.9; O2SAT 86–97
[~2017-05-10 05:06] MED LIST changes: +CHOL100010 PO; +FINA5TAB PO; +FLM4 PO; +FLUO10CA48 PO; -FLUO40CA8 PO; -MULTTAB58 PO; +NITR1CAP33 PO; +PROP10TA7 PO; -TNR25 PO
[2017-05-10] MEDS ORDERED: GLC/500 PO (05:40)
[2017-05-10] MEDS ORDERED: LACTATED RINGER'S 1000ML 1,000 ML IV SCH (06:00)
[2017-05-10] MEDS ORDERED: CIPROFLOXACIN / D5W 400 MG IV SCH (06:00)
[2017-05-10] MEDS ORDERED: ONDANSETRON INJ 2 MG/ML 2 ML VIAL IV PRN ×2 (06:30→10:15)
[2017-05-10] MEDS ORDERED: ATROPINE SULFATE 0.1 MG/ML 5ML SYR IV PRN (06:30)
[2017-05-10] MEDS ORDERED: HYDROmorphone INJ 1 MG/ML SYR IV PRN (06:30)
[2017-05-10] MEDS ORDERED: EpHEDrine SULFATE INJ 50 MG/ML AMP IV PRN (06:30)
[2017-05-10] MEDS ORDERED: FENTANYL CITRATE INJ 50 MCG/1 ML 2 ML VIAL IV PRN (06:30)
[2017-05-10] MEDS ORDERED: ONDANSETRON INJ 2 MG/ML 2 ML VIAL ONE (06:52)
[2017-05-10] MEDS ORDERED: LIDOCAINE HCL 2% 2 ML VIAL (20MG/ML) ONE (06:52)
[2017-05-10] MEDS ORDERED: DEXAMETHASONE SOD INJ 4 MG/ML VIAL ONE ×2 (06:52→08:15)
[2017-05-10] MEDS ORDERED: FENTANYL CITRATE INJ 50 MCG/1 ML 2 ML VIAL ONE ×2 (06:52→11:00)
[2017-05-10] MEDS ORDERED: MIDAZOLAM HCL 1 MG/ML 2ML VIAL ONE (06:52)
[2017-05-10] MEDS ORDERED: PROPOFOL IV EMULSION 10 MG/ML 20 ML VIAL IV ONE ×2 (06:52→08:15)
--- NOTE | 2017-05-10 07:12 | History & Physical Bridge Note ---
H&P Re-Evaluation Bridge Note: I have examined the patient, reviewed the History & Physical and in the interval since the performance of the History & Physical I have noted the following changes of clinical significance: No changes noted
[2017-05-10] MEDS ORDERED: PHENYLEPHRINE 100MCG/ML 5ML SYR ONE (07:38)
[2017-05-10] MEDS ORDERED: EpHEDrine SULFATE 50MG/5ML SYR ONE (08:18)
[2017-05-10] MEDS ORDERED: ROCURONIUM BROMIDE 10 MG/ML 5 ML VIAL IV ONE (08:39)
[2017-05-10] MEDS ORDERED: ARTIFICIAL TEARS OP OINT 3.5 GM TUBE ONE (08:53)
[2017-05-10] MEDS ORDERED: ALBUTEROL HFA INHALER 8.5 GM INH ONE (09:50)
[2017-05-10] MEDS ORDERED: NEOSTIGMINE METHYLSULFATE 5 MG/5 ML SYR ONE (09:51)
[2017-05-10] MEDS ORDERED: GLYCOPYRROLATE INJ 0.2 MG/ML VIAL ONE (09:51)
[2017-05-10] MEDS ORDERED: MoRPHine SULFATE 2 MG/ML CARP IV PRN (10:15)
--- NOTE | 2017-05-10 10:20 | [facility] Post Operative Brief Note ---
Immediate Operative Summary Operative Date May 10, 2017. Pre-Operative Diagnosis Incomplete Bladder Emptying Post-Operative Diagnosis same as pre-operative Procedure(s) Performed Transurethral Resection Prostate Surgeon Dr. Benigno Álvarez Surveillance Specialist Surgeon(s) none Estimated Blood Loss 100CC Findings a pocket in l lobe of prostate w cluster of 20 or so stones seen Specimens A. PROSTATE CHIPS Drains willams Disposition Surgical ICU
--- NOTE | 2017-05-10 10:29 | Anesthesiology Progress Note ---
Anesthesia Post Op Note Date & Time May 10, 2017 at 10:28 Vital Signs Pain Intensity: 0 Vital Signs Past 12 Hours Date Time Temp Pulse Resp B/P (MAP) Pulse Ox O2 Delivery O2 Flow Rate FiO2 05/10/17 10:03 68 14 94 05/10/17 10:03 69 14 05/10/17 10:02 111/61 05/10/17 09:58 65 21 05/10/17 09:58 66 21 94 05/10/17 09:57 129/66 05/10/17 09:56 66 16 94 05/10/17 09:56 67 16 05/10/17 09:51 72 18 05/10/17 09:51 72 18 128/85 95 05/10/17 09:46 71 13 05/10/17 09:46 70 13 126/71 95 05/10/17 09:42 129/78 05/10/17 09:41 36.0 74 15 129/78 (90) 94 Oxymask 10 05/10/17 05:43 36.9 68 18 140/85 (103) 97 Room Air Notes Mental Status: alert / awake / arousable, participated in evaluation Pt Amnestic to Procedure: Yes Nausea / Vomiting: adequately controlled Pain: adequately controlled Airway Patency, RR, SpO2: stable & adequate BP & HR: stable & adequate Hydration State: stable & adequate Anesthetic Complications: no major complications apparent Awake, doing well, no complaints. VSS.
[2017-05-10] MEDS ORDERED: IV FLUIDS COMPLETED PRN (11:45)
--- NOTE | 2017-05-10 11:54 | OPERATIVE REPORT ---
DATE OF OPERATION: 05/10/2017 PROCEDURE PERFORMED: TURP. HISTORY OF PRESENTATION: The patient is a 76-year-old male with history of stone disease, also has a history of BPH, recently seen in the office with high residuals. We did a cystoscopy and elected to proceed to TURP. DESCRIPTION OF THE PROCEDURE: The patient presents today for the procedure, he was taken to the operating room after Venodyne stockings were placed and he had been given Cipro and general anesthesia was administered. Ultimately intraoperatively, he was switched to general endotracheal anesthesia from facial tube anesthesia. Prior to this, he was prepped and draped in usual sterile fashion in dorsal lithotomy position. Cystoscopy was performed which did show mild to moderate trabeculation with a moderate to small size prostate with significant obstruction and a high bladder neck. Initially, using the bipolar system, a loop was used to resect the bladder neck, taking care not to interfere with the ureteral orifices. A pocket that was epithelialized with multiple 15-20 small stones, it was found in the left lateral wall two-thirds of the way towards the bladder neck. This was opened and the stones were washed out into the bladder and most of them washed out during the procedure. After the bladder neck was resected and moderate amount of tissue was resected, I switched over to the button and completed the procedure using the button procedure taking care not to resect beyond the verumontanum. There was no evidence of any bleeding at the end of the procedure. There was a clear channel from the verumontanum into the bladder and it was opened. I did take care to fulgurate any bleeding areas. Then I did switch over back to the resectoscope because I saw a chip that was left in the bladder and a moderate size stone which were removed. At the end of the procedure, a 22-Malawian catheter using a catheter guide was placed without difficulty. Clear urine effluxed out of the bladder and was irrigated out. The patient was transferred to the recovery room in stable condition. I attest to the content of the Intraoperative Record and any orders documented therein. Any exception s are noted below.
[2017-05-10] MEDS ORDERED: GLUCAGON FOR INJ 1 MG VIAL SQ PRN (14:15)
[2017-05-10] MEDS ORDERED: GLUCOSE 10 TABS/TUBE PO PRN (14:15)
[2017-05-10] MEDS ORDERED: DEXTROSE 50% 50 ML SYR IV PRN (14:15)
[2017-05-10] MEDS ORDERED: HydrALAZINE HCL 20 MG/ML VIAL IV. PRN (14:15)
[2017-05-10] MEDS ORDERED: GLUCOSE 40% GEL 15 GM TUBE PO PRN (14:15)
--- NOTE | 2017-05-10 14:30 | Medical Consult ---
Consultation Date of Consultation: May 10, 2017. Attending Physician: Benigno Álvarez M.D. Reason for Consultation: Medical Management History of Present Illness Mr. Alamo is a 76 y/o male with a PMHx of HTN, Type 1 Diastolic Dysfunction, T2DM, CVA, BPH, and Nephrolithiasis who is S/P TURP on 05/10. Pain is currently well-controlled and tolerating a diet. He denies H/O cardiac history including IA, CHF, or DVT/PE. He is normally a diet/exercise controlled type 2 diabetic but recently started Metformin approx. 1 week ago. He has noticed he has been gaining weight has his glucose has been increasing. He intends to try and lose weight and get back to diet controlled diabetes. He reports that 2 small CVAs were found incidentally on head CT but denies any symptoms or residual deficits. He reports he is on an antidepressant but is unsure of the name. has list of his medications but not currently at bedside. Past Medical/Surgical History 1. HTN 2. Type 1 Diastolic Dysfunction 3. T2DM 4. CVA 5. BPH 6. Nephrolithiasis Family History Diabetes mellitus Social History Smoking Status: Former Smoker Marital Status: Housing Status: lives with family Allergies Coded Allergies: No Known Allergies (Unverified , 05/10/17) Current Inpatient Medications Current Inpatient Medications Medications (Trade) Dose Ordered Sig/Ashley Route Start Time Stop Time Status Last Admin Dose Admin Ondansetron HCl (Zofran Inj) 4 mg Q4H PRN IV 05/10/17 10:15 06/09/17 10:14 Morphine Sulfate (MoRPHine SULFATE INJ) 2 mg Q1H PRN IV 05/10/17 10:15 05/24/17 10:14 Acetaminophen/ Hydrocodone Bitart (Industry 5/325 Tab) 1 tab Q4H PRN PO 05/10/17 10:15 05/24/17 10:14 Ciprofloxacin/ Dextrose 400 mg/ Prmx 200 ml @ 100 mls/hr Q12H IV 05/10/17 20:00 05/11/17 19:59 Amiloride/HCTZ (Moduretic 5-50MG Tab) 1 tab QAM PO 05/11/17 09:00 06/10/17 08:59 Lisinopril (Zestril Tab) 10 mg QAM PO 05/11/17 09:00 06/10/17 08:59 Metformin HCl (Glucophage Tab) 500 mg BIDM PO 05/10/17 17:45 06/09/17 17:44 Propranolol HCl (Inderal Tab) 10 mg BID PO 05/10/17 21:00 06/09/17 20:59 Miscellaneous (Iv Fluids Completed) 1 ea PRN PRN N/A 05/10/17 11:45 05/10/18 11:44 Review of Systems Constitutional: No fever, No chills ENT: No nasal symptoms, No sore throat, No trouble swallowing Respiratory: No cough, No shortness of breath Cardiovascular: No chest pain, No palpitations Abdomen: No pain, No nausea, No vomiting, No diarrhea, No constipation, No GI bleeding Musculoskeletal: No swelling, No calf pain Genitourinary - Male: + problem reported (minimal pain in groin) Hematologic / Lymphatic: No abnormal bleeding/bruising Integumentary: No rash Physical Exam Date Time Temp Pulse Resp B/P (MAP) Pulse Ox O2 Delivery O2 Flow Rate FiO2 05/10/17 12:47 91 Nasal Cannula 2.0 05/10/17 12:40 75 16 113/68 (83) 86 Room Air 05/10/17 12:19 36.5 75 16 125/80 (95) 91 Room Air 05/10/17 12:11 Room Air 05/10/17 11:53 81 14 97 05/10/17 11:53 78 14 05/10/17 11:48 72 14 05/10/17 11:48 79 14 98 05/10/17 11:46 130/75 05/10/17 11:43 84 14 05/10/17 11:43 87 14 98 05/10/17 11:38 68 15 05/10/17 11:38 66 15 99 05/10/17 11:33 80 17 98 05/10/17 11:33 80 17 05/10/17 11:31 121/70 05/10/17 11:28 67 16 96 05/10/17 11:28 71 16 05/10/17 11:27 78 18 05/10/17 11:27 78 18 96 05/10/17 11:22 72 10 05/10/17 11:22 68 10 94 05/10/17 11:17 68 14 92 05/10/17 11:17 71 14 05/10/17 11:16 124/80 05/10/17 11:14 73 9 91 05/10/17 11:14 71 9 05/10/17 11:09 75 14 92 05/10/17 11:09 74 14 05/10/17 11:04 67 16 05/10/17 11:04 64 16 99 05/10/17 11:01 122/79 05/10/17 10:59 68 14 99 05/10/17 10:59 69 14 05/10/17 10:54 64 14 98 05/10/17 10:54 64 14 05/10/17 10:53 69 15 05/10/17 10:53 67 15 96 05/10/17 10:48 72 15 05/10/17 10:48 76 15 99 05/10/17 10:47 81 18 95 05/10/17 10:47 78 18 05/10/17 10:46 130/70 05/10/17 10:42 69 17 98 05/10/17 10:42 70 17 05/10/17 10:37 70 24 05/10/17 10:37 72 24 99 05/10/17 10:32 66 14 05/10/17 10:32 67 14 97 05/10/17 10:31 128/74 05/10/17 10:29 68 20 05/10/17 10:29 72 20 98 05/10/17 10:26 122/74 05/10/17 10:25 36.5 74 17 122/74 (80) 100 Room Air 05/10/17 10:24 70 13 05/10/17 10:24 69 13 97 05/10/17 10:21 125/83 05/10/17 10:19 63 17 05/10/17 10:19 67 17 96 05/10/17 10:16 129/77 05/10/17 10:14 66 16 05/10/17 10:14 68 16 90 05/10/17 10:11 118/68 05/10/17 10:09 65 13 94 05/10/17 10:09 66 13 05/10/17 10:06 125/69 05/10/17 10:04 74 14 05/10/17 10:04 74 14 94 05/10/17 10:03 68 14 94 05/10/17 10:03 69 14 05/10/17 10:02 111/61 05/10/17 09:58 65 21 05/10/17 09:58 66 21 94 05/10/17 09:57 129/66 05/10/17 09:56 66 16 94 05/10/17 09:56 67 16 05/10/17 09:51 72 18 05/10/17 09:51 72 18 128/85 95 05/10/17 09:46 71 13 05/10/17 09:46 70 13 126/71 95 05/10/17 09:42 129/78 05/10/17 09:41 36.0 74 15 129/78 (90) 94 Oxymask 10 05/10/17 05:43 36.9 68 18 140/85 (103) 97 Room Air General Appearance: WD/WN, no apparent distress Head: normocephalic, atraumatic Eyes: sclerae normal ENT: hearing grossly normal Neck: supple, no JVD, trachea midline Respiratory/Chest: lungs clear, normal breath sounds, no respiratory distress, no accessory muscle use Cardiovascular: regular rate, rhythm, no gallop, no murmur Abdomen/GI: normal bowel sounds, non tender, soft Extremities/Musculoskelatal: no pedal edema Neurologic/Psych: alert, oriented x 3 Skin: normal color, warm/dry Laboratory Results Last 24 Hours Test 05/10/17 05:31 05/10/17 10:11 05/10/17 12:55 Bedside Glucose 144 mg/dl 129 mg/dl Assessment & Plan Mr. Alamo is a 76 y/o male with a PMHx of HTN, Type 1 Diastolic Dysfunction, T2DM, CVA, BPH, and Nephrolithiasis who is S/P TURP on 05/10. Incomplete Bladder Emptying S/P TURP on 05/10: - Per Dr. Álvarez HTN: - Hold Lisinopril and cover with Hydralazine PRN - can resume if kidney function acceptable in AM - Amiloride/HCTZ 1 tab AM - Inderal 10 mg BID T2DM: - Hold Metformin 500 mg BID - cover with SSI - can resume if kidney function acceptable - Recently started approx. 1 week - largely controlled by lifestyle changes Depression/Anxiety: - Is unsure of his anti-depressant but denies Prozac on med rec - not at bedside who has med list - Can be resumed at D/C CVA: - Incidental finding on head CT - Once recovered from TURP procedure - would benefit from preventive measures including at least a daily ASA and statin therapy Thanks for the consultation. Will continue to follow Resident Physician Supervision Note: Pt seen/evaluated independently. I discussed the case with the AP - Beena Thomson and agree with the findings and plan as documented in the note. Any exceptions or clarifications are listed here: 76 y/o M Hx HTN, DM - post TURP - recovering well - minor pain related to surgery present - denies N/V, SOB, lighthead OEAAO x 3 S1,2 R CTAB NT, ND No CCE P: Pt is placed on a sliding scale post-op Reintroduce HTN meds AM provided labs, vitals are stable aside form B kristofer which can cont [place]-op Med to follow pending DC Documented By: Gelacio Heart Additional Copies To Michael Atwood M.D.
[2017-05-10] MEDS: HYDROCODONE/ACETAMOPHEN 5/325MG TAB PO PRN ×2 (15:25→23:30)
[2017-05-10] MEDS ORDERED: METFORMIN HCL 500 MG TAB PO SCH (17:45)
[2017-05-10] MEDS: INSULIN ASPART 100 UNITS/ML 3 ML PEN SC SCH ×2 (17:48→20:49)
[2017-05-10] MEDS: CIPROFLOXACIN / D5W 400 MG in PREMIXED IN D5W 200 ML IV SCH (20:51)
[2017-05-10] MEDS: PROPRANOLOL HCL 10 MG TAB PO SCH (20:52)
[2017-05-11 02:49] VITALS: BP 152/77; PULSE 63; TEMP 36.6; O2SAT 97
[2017-05-11] MEDS: HYDROCODONE/ACETAMOPHEN 5/325MG TAB PO PRN (07:17)
[2017-05-11 07:59] VITALS: BP 140/60; PULSE 70; TEMP 36.5; O2SAT 96
[2017-05-11] MEDS: INSULIN ASPART 100 UNITS/ML 3 ML PEN SC SCH (08:00)
[2017-05-11] MEDS: CIPROFLOXACIN / D5W 400 MG in PREMIXED IN D5W 200 ML IV SCH (08:30)
[2017-05-11 08:34] VITALS: O2SAT 96
[2017-05-11] MEDS: PROPRANOLOL HCL 10 MG TAB PO SCH (08:36)
[2017-05-11] MEDS ORDERED: AMILORIDE/HCTZ 5-50 MG TAB PO SCH (09:00)
[2017-05-11] MEDS ORDERED: LISINOPRIL 10 MG TAB PO SCH (09:00)
--- NOTE | 2017-05-11 09:04 | Progress Note ---
Subjective Date of Service: May 11, 2017. Subjective Pt evaluation today including: conversation w/ patient, chart review Voiding: willams catheter in place (patent, draining clear, yellow urine ) 76 yo male s/p TURP. Pt reports he feels well this morning. Denies pain. Denies n/v. He is OOB to chair this morning eating breakfast. Willams draining clear, yellow urine. Review of Systems Constitutional: No fever, No chills Respiratory: No shortness of breath Cardiac: No chest pain Abdomen: No pain, No nausea, No vomiting Male : No hematuria Heme: No abnormal bleeding/bruising Objective Vital Signs Date Time Temp Pulse Resp B/P (MAP) Pulse Ox O2 Delivery O2 Flow Rate FiO2 05/11/17 08:34 96 Room Air 05/11/17 07:59 36.5 70 16 140/60 (86) 96 Room Air 05/11/17 07:18 Room Air 05/11/17 02:49 36.6 63 17 152/77 (102) 97 Room Air 05/10/17 23:30 Room Air 05/10/17 22:44 36.7 87 16 123/76 (92) 93 Room Air 05/10/17 18:57 36.9 99 17 128/71 (90) 92 Room Air 05/10/17 15:20 Room Air 05/10/17 15:01 36.6 89 16 116/68 (84) 95 Nasal Cannula 2.0 05/10/17 14:10 86 16 127/74 (91) 95 2.0 05/10/17 13:10 88 16 118/65 (82) 92 2.0 05/10/17 12:47 91 Nasal Cannula 2.0 05/10/17 12:40 75 16 113/68 (83) 86 Room Air 05/10/17 12:19 36.5 75 16 125/80 (95) 91 Room Air 05/10/17 12:11 Room Air 05/10/17 11:53 81 14 97 05/10/17 11:53 78 14 05/10/17 11:48 72 14 05/10/17 11:48 79 14 98 05/10/17 11:46 130/75 05/10/17 11:43 84 14 05/10/17 11:43 87 14 98 05/10/17 11:38 68 15 05/10/17 11:38 66 15 99 05/10/17 11:33 80 17 98 05/10/17 11:33 80 17 05/10/17 11:31 121/70 05/10/17 11:28 67 16 96 05/10/17 11:28 71 16 05/10/17 11:27 78 18 05/10/17 11:27 78 18 96 05/10/17 11:22 72 10 05/10/17 11:22 68 10 94 05/10/17 11:17 68 14 92 05/10/17 11:17 71 14 05/10/17 11:16 124/80 05/10/17 11:14 73 9 91 05/10/17 11:14 71 9 05/10/17 11:09 75 14 92 05/10/17 11:09 74 14 05/10/17 11:04 67 16 05/10/17 11:04 64 16 99 05/10/17 11:01 122/79 05/10/17 10:59 68 14 99 05/10/17 10:59 69 14 05/10/17 10:54 64 14 98 05/10/17 10:54 64 14 05/10/17 10:53 69 15 05/10/17 10:53 67 15 96 05/10/17 10:48 72 15 05/10/17 10:48 76 15 99 05/10/17 10:47 81 18 95 05/10/17 10:47 78 18 05/10/17 10:46 130/70 05/10/17 10:42 69 17 98 05/10/17 10:42 70 17 05/10/17 10:37 70 24 05/10/17 10:37 72 24 99 05/10/17 10:32 66 14 05/10/17 10:32 67 14 97 05/10/17 10:31 128/74 05/10/17 10:29 68 20 05/10/17 10:29 72 20 98 05/10/17 10:26 122/74 05/10/17 10:25 36.5 74 17 122/74 (80) 100 Room Air 05/10/17 10:24 70 13 05/10/17 10:24 69 13 97 05/10/17 10:21 125/83 05/10/17 10:19 63 17 05/10/17 10:19 67 17 96 11/30/17 10:16 129/77 05/10/17 10:14 66 16 05/10/17 10:14 68 16 90 05/10/17 10:11 118/68 05/10/17 10:09 65 13 94 05/10/17 10:09 66 13 05/10/17 10:06 125/69 05/10/17 10:04 74 14 05/10/17 10:04 74 14 94 05/10/17 10:03 68 14 94 05/10/17 10:03 69 14 05/10/17 10:02 111/61 05/10/17 09:58 65 21 05/10/17 09:58 66 21 94 05/10/17 09:57 129/66 05/10/17 09:56 66 16 94 05/10/17 09:56 67 16 05/10/17 09:51 72 18 05/10/17 09:51 72 18 128/85 95 05/10/17 09:46 71 13 05/10/17 09:46 70 13 126/71 95 05/10/17 09:42 129/78 05/10/17 09:41 36.0 74 15 129/78 (90) 94 Oxymask 10 Physical Exam General Appearance: no apparent distress Eyes: normal inspection ENT: hearing grossly normal Neck: no JVD Respiratory/Chest: no respiratory distress, no accessory muscle use Cardiovascular: no JVD Extremities: normal inspection Neurologic/Psychiatric: alert, normal mood/affect, oriented x 3 Skin: normal color Laboratory Results Last 24 Hours Test 05/10/17 10:11 05/10/17 12:55 05/10/17 17:17 05/10/17 20:23 Bedside Glucose 129 mg/dl 145 mg/dl 211 mg/dl Hepatitis C Antibody Screen NEG Assessment and Plan POD #1 s/p TURP AFVSS. Pt doing well post-op. Will attempt a TOV this morning. Discharge home later this morning after TOV. Pt to f/u with Dr. Álvarez as scheduled. Discharge planning: home
[2017-05-11] MEDS ORDERED: DOCU-94 PO (09:05)
[2017-05-11] MEDS ORDERED: HYDR-5688 PO (09:05)
[2017-05-11] MEDS ORDERED: NITR1CAP33 PO (09:06)
--- NOTE | 2017-05-11 09:08 | Discharge Instructions ---
Discharge Instructions Date of Service May 11, 2017. Admission Reason for Admission: Benign Prostatic Hyperplasia Discharge Discharge Diagnosis / Problem: Benign Prostatic Hyperplasia Discharge Goals Goal(s): Decrease discomfort, Therapeutic intervention Activity Recommendations Activity Limitations: as noted below Lifting Limitations: no more than 25 pounds (x 2 weeks ) Exercise/Sports Limitations: rest today, gradually increase as tolerated ( light activity x 2 weeks) May Resume Sexual Activity: after follow-up appointment Shower/Bathe: no limitations Driving or Machine Use: resume 3 days after discharge (Do not drive while taking narcotics. ) . Current Hospital Diet Patient's current hospital diet: Diabetes Type 2 Diet Discharge Diet Recommended Diet: Diabetes Type 2 Diet Procedures Procedures Performed: Transurethral Resection Prostate Pending Studies Studies pending at discharge: yes (prostate tissue) List of pending studies: prostate tissue Medical Emergencies . Who to Call and When: Medical Emergencies: If at any time you feel your situation is an emergency, please call 911 immediately. . Non-Emergent Contact Non-Emergency issues call your: Urologist Call Non-Emergent contact if: temperature is above 101.5, your pain is not controlled, your pain is worsening, your pain is unusual for you, your pain is concerning you, you have any medication questions . . "Provider Documentation" section prepared by Charlee De. . VTE Core Measure Inpt VTE Proph given/why not?: SCD's [place] Drug Monitoring Program Search Results: patient reviewed within database, no issues identified
[2017-05-11 11:40] VITALS: BP 140/60; PULSE 70; TEMP 36.5; O2SAT 96
[2017-05-11 12:21] VITALS: Ht 167.6 cm; Wt 84.6 kg
== END 2017-05-11 11:58 | disposition home or self-care (01) ==
LOC: C.ACU 05:06 → C.MSW 10:15 → ENRESERV 11:43
PROVIDERS: ADMIT Urology; ATTEND Urology
DX: N40.1 Benign prostatic hyperplasia with lower urinary tract symptoms (principal); N13.8 Other obstructive and reflux uropathy; N21.0 Calculus in bladder; I10 Essential (primary) hypertension; Z87.442 Personal history of urinary calculi; Z87.891 Personal history of nicotine dependence; Z79.899 Other long term (current) drug therapy

== ENCOUNTER → 2017-06-12 | Outpatient (CLI) | payer OTHER ==
[~2017-06-12] MED LIST changes: +CIPR-255 PO; +CYM/30 PO; +DOCU-94 PO; +GLC/500 PO; +HYDR-5688 PO; +OXYC7.5T65 PO; +PHEN95TA14 PO
--- NOTE | 2017-06-12 14:44 | DIAGNOSTIC IMAGING REPORT ---
[facility] CLINICAL HISTORY: N20.0 [id number] Benign prostatic hyperplasia with uri nephrocalcinosis COMPARISON STUDY: 03/23/2017 FINDINGS: The soft tissues, psoas shadows, renal outlines and intestinal gas pattern appear normal. There is no evidence for bowel obstruction. 9 mm calcification medial aspect right kidney unchanged from the prior study. Minimal nephrocalcinosis no more than 1.5 mm central left kidney. This is unchanged. Several benign vascular calcifications of the soft tissue pelvis also unchanged. Nonobstructive bowel pattern. IMPRESSION: 1. Unchanging bilateral nephrocalcinosis 2. No ureteral calculi. 3. No change from the prior study. The above report was generated using voice recognition software. It may contain grammatical, syntax or spelling errors. Electronically signed by: Gold Darling M.D. 06/12/2017 2:42 PM Dictated Date/Time: 06/12/2017 2:40 PM
== END | disposition home or self-care (01) ==
LOC: C.RAD 14:17
PROVIDERS: ATTEND Urology
DX: N20.0 Calculus of kidney (principal); N40.1 Benign prostatic hyperplasia with lower urinary tract symptoms

== ENCOUNTER → 2017-06-27 | Outpatient (CLI) | payer OTHER ==
[~2017-06-27] MED LIST changes: -CIPR-255 PO; -PHEN95TA14 PO
== END | disposition home or self-care (01) ==
LOC: C.LABSPEC 17:03
PROVIDERS: ATTEND Urology
DX: N20.0 Calculus of kidney (principal)

== ENCOUNTER → 2017-07-02 | Day surgery (SDC) | payer OTHER ==
[2017-06-28 14:55] VITALS: BMI 29.0
[~2017-07-02] VITALS: Ht 167.6 cm; Wt 82.7 kg
[~2017-07-02] MED LIST changes: +ACETAMINOPHEN 325 MG TAB PO PRN; +ATROPINE SULFATE 0.1 MG/ML 5ML SYR IV PRN; +CIPR-255 PO; +CIPROFLOXACIN / D5W 400 MG IV SCH; +CONRAY 30% 150ML BOTTLE ONE; +DEXAMETHASONE SOD INJ 4 MG/ML VIAL ONE; -DOCU-94 PO; +EpHEDrine SULFATE INJ 50 MG/ML AMP IV PRN; +FENTANYL CITRATE INJ 50 MCG/1 ML 2 ML VIAL IV PRN; +FENTANYL CITRATE INJ 50 MCG/1 ML 2 ML VIAL ONE; +FLUMAZENIL 0.1 MG/1 ML 10 ML VIAL IV PRN; -FLUO10CA48 PO; -HYDR-5688 PO; +HYDROmorphone INJ 2 MG/ML SYR/VIAL IV PRN; +LABETALOL HCL IV 5 MG/ML 20ML IV PRN; +LACTATED RINGER'S 1000ML 1,000 ML IV SCH; +LIDOCAINE HCL 2% 2 ML VIAL (20MG/ML) ONE; +MEPERIDINE HCL 25 MG/ML CARP IV PRN; +MIDAZOLAM HCL 1 MG/ML 2ML VIAL ONE; +NALOXONE HCL 0.4 MG/1 ML VIAL/CARP IV PRN; -NITR1CAP33 PO; +ONDANSETRON INJ 2 MG/ML 2 ML VIAL IV PRN; +ONDANSETRON INJ 2 MG/ML 2 ML VIAL ONE; +OXYCODONE/ACETAMINOPHEN 5-325 TAB ONE; +OXYCODONE/ACETAMINOPHEN 5-325 TAB PO PRN; +PHEN95TA14 PO; +PHENYLEPHRINE 100MCG/ML 5ML SYR IV PRN; +PHENYLEPHRINE 100MCG/ML 5ML SYR ONE; +PROPOFOL IV EMULSION 10 MG/ML 20 ML VIAL IV ONE; +SODIUM CHLORIDE 0.9% 1000ML 1,000 ML IV SCH
[2017-07-02 08:40] VITALS: BP 135/74; PULSE 81; TEMP 36.7; O2SAT 96; Ht 167.6 cm; Wt 82.7 kg
--- NOTE | 2017-07-02 09:14 | Discharge Instructions ---
Discharge Instructions Date of Service Jul 02, 2017. Admission Reason for Admission: Stones Discharge Discharge Diagnosis / Problem: stones Discharge Goals Goal(s): Decrease discomfort, Improve function, Increase independence, Improve disease control Activity Recommendations Activity Limitations: resume your previous activity Lifting Limitations: none Exercise/Sports Limitations: none May Resume Sexual Activity: when tolerated Shower/Bathe: no limitations Driving or Machine Use: resume 1 day after discharge . Instructions / Follow-Up Instructions / Follow-Up Please keep your previously scheduled appointment for stent removal. Current Hospital Diet Patient's current hospital diet: Discharge Diet Recommended Diet: Regular Diet Pending Studies Studies pending at discharge: no Medical Emergencies . Who to Call and When: Medical Emergencies: If at any time you feel your situation is an emergency, please call 911 immediately. . Non-Emergent Contact Non-Emergency issues call your: Urologist Call Non-Emergent contact if: you have a fever, temperature is above 101.5, your pain is not controlled, your pain is worsening . . "Provider Documentation" section prepared by Chang Yeung. . VTE Core Measure Inpt VTE Proph given/why not?: Treatment not indicated [place] Drug Monitoring Program Search Results: patient reviewed within database (2 recent rx related to the same condition, new rx provided with strict instructions not to fill unless absolutely necessary. )
--- NOTE | 2017-07-02 10:24 | [facility] Post Operative Brief Note ---
Immediate Operative Summary Operative Date Jul 02, 2017. Pre-Operative Diagnosis Nephrolithiasis; Right Ureteric stone Post-Operative Diagnosis Nephrolithiasis; Right Ureteric stone Procedure(s) Performed Cystoscopy, Right Ureteroscopy, Laser Lithotripsy, Stent Insertion ([id number]); Basket Manipulation Surgeon Dr. Mohit Malone Stockroom Clerk Surgeon(s) none Estimated Blood Loss 5mL Findings Consistent with Post-Op Diagnosis Specimens none per surgeon Drains stent Anesthesia Type General Complication(s) none Disposition Disposition: Recovery Room / PACU
--- NOTE | 2017-07-02 10:30 | [facility] Operative Report ---
Operative Report Operative Date Jul 02, 2017. Pre-Operative Diagnosis Nephrolithiasis; Right Ureteric stone Post-Operative Diagnosis Nephrolithiasis; Right Ureteric stone Procedure(s) Performed Cystoscopy, Right Ureteroscopy, Laser Lithotripsy, Stent Insertion ([id number]); Basket Manipulation Surgeon Dr. Mohit Malone Putty Remover Surgeon(s) none Estimated Blood Loss 5mL Findings Large calculus within the right kidney Specimens none per surgeon Drains stent Anesthesia Gen. Complication(s) None Disposition Recovery Room / PACU Indications Symptomatic right renal stone Description of Procedure The patient was identified in the preoperative holding area, appropriate informed consent reviewed and completed, and the patient was transported to the operating suite. Upon arrival he received appropriate preoperative antibiotics in the form of ciprofloxacin. Adequate general anesthesia was achieved and he was sterilely prepped in standard fashion. I begin the case by passing a 22 [place] cystoscope with 30 lens. Of note he is status post recent TURP and appears to be healing appropriately with an open prostatic fossa. The bladder revealed healthy-appearing bladder mucosa and ureteral orifices were in orthotopic location. I turned my attention to the right ureteral orifice and cannulated it with a 10 [place]e double-lumen catheter and 2 sensor wires. The wires advanced the kidney without difficulty. An opacity in the right kidney was easily visualized and move retrograde into the lower pole with passage of the wires. I then withdrew the 10 [place] double-lumen catheter and passed a flexible ureteroscope over one of the wires while serving the other as a safety wire. Full renoscopy was carried out. There were numerous small Randles plaques throughout the kidney there was a large stone in the dependent portion of the lower pole. There was somewhat challenging to flex the scope adequately to treat the stone in this lower pole location. A 200 fiber was passed and I began to treat the stone in this lower pole, however became readily apparent that I would not be able to completely treat the stone in this location. I subsequently passed a flexible grasping basket and grabbed the stone and moved it to an upper pole calyx. In that location, I was able to complete treatment of the stone and fragment it entirely into pieces deemed safe for spontaneous passage. A repeat renoscopy was carried out, identifying no large retained fragments. A careful exit ureteroscopy was completed without identification of any stones within the ureter. A 6 [place]e by 26 cm double-J ureteral stent was inserted and the case concluded. There were no complications I attest to the content of the Intraoperative Record and any orders documented therein. Any exceptions are noted below.
[2017-07-02 11:16] VITALS: BP 135/76; PULSE 73; TEMP 36.6; O2SAT 97
--- NOTE | 2017-07-02 11:17 | Anesthesiology Progress Note ---
Anesthesia Post Op Note Date & Time Jul 02, 2017 at 11:17 Vital Signs Pain Intensity: 0 Vital Signs Past 12 Hours Date Time Temp Pulse Resp B/P (MAP) Pulse Ox O2 Delivery O2 Flow Rate FiO2 07/02/17 11:06 36.2 140/75 07/02/17 11:05 76 16 96 07/02/17 11:05 75 07/02/17 11:01 125/65 07/02/17 11:00 78 15 92 07/02/17 11:00 77 15 07/02/17 10:56 139/77 07/02/17 10:55 75 12 99 07/02/17 10:55 77 12 07/02/17 10:51 144/78 07/02/17 10:50 75 14 94 07/02/17 10:50 75 14 07/02/17 10:46 145/82 07/02/17 10:45 75 12 99 07/02/17 10:45 75 12 07/02/17 10:41 142/81 07/02/17 10:40 79 14 07/02/17 10:40 78 14 97 07/02/17 10:37 128/78 07/02/17 10:35 36.3 78 16 128/78 98 Oxymask 7 07/02/17 08:40 36.7 81 18 135/74 (94) 96 Room Air Notes Mental Status: alert / awake / arousable, participated in evaluation Pt Amnestic to Procedure: Yes Nausea / Vomiting: adequately controlled Pain: adequately controlled Airway Patency, RR, SpO2: stable & adequate BP & HR: stable & adequate Hydration State: stable & adequate Anesthetic Complications: no major complications apparent
[2017-07-02 11:46] VITALS: BP 126/74; PULSE 74; TEMP 36.6; O2SAT 94
[2017-07-02 12:20] VITALS: BP 128/74; PULSE 72; TEMP 36.6; O2SAT 95
--- NOTE | 2017-07-02 13:18 | DIAGNOSTIC IMAGING REPORT ---
INTRAOPERATIVE RADIOGRAPH CLINICAL HISTORY: Right-sided lithotripsy and stent placement. Fluoroscopy time: 12 seconds. FINDINGS: 2 spot fluoroscopic views of the right upper abdomen from a lithotripsy and ureteral stent procedure are correlated with abdominal CT dated 06/24/2017. Both images through the proximal end of a right ureteral stent being deployed. IMPRESSION: Intraoperative images from a right ureteral stent placement as above. Electronically signed by: Maykel Jennings M.D. 07/02/2017 1:17 PM Dictated Date/Time: 07/02/2017 1:16 PM
== END | disposition home or self-care (01) ==
LOC: C.ACU 08:01
PROVIDERS: ATTEND Urology
DX: N20.0 Calculus of kidney (principal); N20.1 Calculus of ureter; E66.9 Obesity, unspecified; G47.33 Obstructive sleep apnea (adult) (pediatric); I10 Essential (primary) hypertension; E11.9 Type 2 diabetes mellitus without complications; R33.9 Retention of urine, unspecified; N40.1 Benign prostatic hyperplasia with lower urinary tract symptoms; N13.8 Other obstructive and reflux uropathy; Z87.440 Personal history of urinary (tract) infections; Z86.73 Personal history of transient ischemic attack (TIA), and cerebral infarction without residual deficits; Z90.79 Acquired absence of other genital organ(s); Z87.891 Personal history of nicotine dependence

== ENCOUNTER → 2017-07-19 | Outpatient (CLI) | payer OTHER ==
[~2017-07-19] MED LIST changes: -ACETAMINOPHEN 325 MG TAB PO PRN; -ATROPINE SULFATE 0.1 MG/ML 5ML SYR IV PRN; -CIPROFLOXACIN / D5W 400 MG IV SCH; -CONRAY 30% 150ML BOTTLE ONE; -DEXAMETHASONE SOD INJ 4 MG/ML VIAL ONE; -EpHEDrine SULFATE INJ 50 MG/ML AMP IV PRN; -FENTANYL CITRATE INJ 50 MCG/1 ML 2 ML VIAL IV PRN; -FENTANYL CITRATE INJ 50 MCG/1 ML 2 ML VIAL ONE; -FLUMAZENIL 0.1 MG/1 ML 10 ML VIAL IV PRN; -HYDROmorphone INJ 2 MG/ML SYR/VIAL IV PRN; -LABETALOL HCL IV 5 MG/ML 20ML IV PRN; -LACTATED RINGER'S 1000ML 1,000 ML IV SCH; -LIDOCAINE HCL 2% 2 ML VIAL (20MG/ML) ONE; -MEPERIDINE HCL 25 MG/ML CARP IV PRN; -MIDAZOLAM HCL 1 MG/ML 2ML VIAL ONE; -NALOXONE HCL 0.4 MG/1 ML VIAL/CARP IV PRN; -ONDANSETRON INJ 2 MG/ML 2 ML VIAL IV PRN; -ONDANSETRON INJ 2 MG/ML 2 ML VIAL ONE; -OXYC7.5T65 PO; -OXYCODONE/ACETAMINOPHEN 5-325 TAB ONE; -OXYCODONE/ACETAMINOPHEN 5-325 TAB PO PRN; -PHENYLEPHRINE 100MCG/ML 5ML SYR IV PRN; -PHENYLEPHRINE 100MCG/ML 5ML SYR ONE; -PROPOFOL IV EMULSION 10 MG/ML 20 ML VIAL IV ONE; -SODIUM CHLORIDE 0.9% 1000ML 1,000 ML IV SCH
--- NOTE | 2017-07-19 13:40 | DIAGNOSTIC IMAGING REPORT ---
[facility] HISTORY: Follow-up study in a patient with nephrolithiasis with right ureteral stent. Recent lithotripsy COMPARISON: [facility] 06/12/2017, CT 06/24/2017, [facility] 07/02/2017 FINDINGS: The bowel gas pattern is non-obstructive. There is no organomegaly. Fragmented punctate calculi measuring up to 8 mm overall projects over the region of the inferior pole right kidney. Right ureteral stent appears to be in appropriate position. Punctate calculi are seen along the proximal portion of the stent at the level of L2 within the region of the proximal right ureter. No large ureteral calculi identified. Left nephrolithiasis measuring up to 3 mm project over the inferior pole left kidney. Surgical clips project over the left hemipelvis. No pneumoperitoneum or pneumatosis. No fracture. Degenerative changes of the lumbar spine and hips. IMPRESSION: 1. Fragmented calculi of the inferior pole right kidney status post lithotripsy. 2. Right ureteral stent in place with punctate calculi along the proximal portion of the stent at the level of L2. 3. Left nephrolithiasis. Electronically signed by: Jamil Schaefer M.D. 07/19/2017 1:38 PM Dictated Date/Time: 07/19/2017 1:33 PM
== END | disposition home or self-care (01) ==
LOC: C.RAD 13:18
PROVIDERS: ATTEND Urology
DX: N20.0 Calculus of kidney (principal)

== ENCOUNTER → 2018-01-08 | Outpatient (CLI) | payer OTHER ==
--- NOTE | 2018-01-08 11:44 | DIAGNOSTIC IMAGING REPORT ---
KUB CLINICAL HISTORY: NEPHROLITHIASIS nephrocalcinosis COMPARISON STUDY: 07/19/2017 FINDINGS: Interval removal of the right ureteral stent. No definite right renal calcifications currently. Several punctate calcifications lower pole left kidney unchanged. Nonobstructive bowel pattern. IMPRESSION: 1. Interval removal right ureteral stent. 2. Unchanged nephrocalcinosis lower pole left kidney. 3. Otherwise negative study. The above report was generated using voice recognition software. It may contain grammatical, syntax or spelling errors. Electronically signed by: Gold Darling M.D. 01/08/2018 11:43 AM Dictated Date/Time: 01/08/2018 11:42 AM
== END | disposition home or self-care (01) ==
LOC: C.LAB 11:05
PROVIDERS: ATTEND Urology
DX: N20.0 Calculus of kidney (principal)